=== PATIENT | female | born 1990 | race Caucasian/White ===

== ENCOUNTER 2018-05-05 08:20 | Day surgery (SDC) | payer OTHER ==
[2018-05-03 15:53] LABS: BASOPHILS 0.2 % (0-2); HEMATOCRIT 42.3 % (36.0-48.0); HEMOGLOBIN 14.4 g/dL (12-16); IMMATURE GRANULOCYTES 0.1 % (0-5); LYMPHOCYTES 27.3 % (15-50); MCV 88.1 fL (80.0-100.0); MEAN PLATELET VOLUME 10.5 fL (7.4-10.4); MONOCYTES 5.8 % (2-11); NEUTROPHILS 64.6 % (40-80); PLATELET COUNT 270 10x3/uL (130-400); RDW 13.4 % (11.5-14.5); WBC 9.4 10x3/uL (4.8-10.8)
[~2018-05-05] VITALS: Ht 149.9 cm; Wt 66.2 kg
[~2018-05-05 08:20] MED LIST: CELEXA10 MG PO; OMEPRAZOLE20 M1 PO; OXYBUTYNIN CHLOR5 MG PO
[2018-05-05 09:42] VITALS: BP 102/68; Ht 149.9 cm; Wt 66.2 kg
[2018-05-05 10:08] LABS: HCG URINE NEGATIVE (NEGATIVE)
--- NOTE | 2018-05-05 14:22 | NUR ---
REC'D PT FROM [facility]. FAMILY AT BEDSIDE. FLUIDS BROUGHT TO PATIENT.
--- NOTE | 2018-05-05 14:50 | NUR ---
OFFERED PT A FL TRAY HOWEVER REFUSED. MOTHER BROUGHT PATIENT SOME FOOD. TOLERATED WITHOUT DIFFICULTY. NO URGE TO VOID.
--- NOTE | 2018-05-05 15:05 | NUR ---
ASSISTED TO BATHROOM AND VOIDED WITHOUT DIFFICULTY.
--- NOTE | 2018-05-05 15:25 | NUR ---
IV DC'D WITH CATHETER INTACT. WRITTEN AND VERBAL DC INST. GIVEN TO PT ALONG WITH RX. VERBALIZED UNDERSTANDING.
--- NOTE | 2018-05-05 15:40 | NUR ---
DC'D HOME WITH FAMILY VIA PRIVATE VEHICLE. TAKEN TO VEHICLE VIA WC. STABLE AT TIME OF DC.
--- NOTE | 2018-05-08 09:28 | OP ---
PATIENT NAME: BABS POP MEDICAL RECORD: [id number] :88 LOCATION:D[facility] ADMISSION DATE: SURGEON: TRAMAINE PEREZ MD DATE OF OPERATION: 05/05/2018 PREOPERATIVE DIAGNOSES: 1. Secondary amenorrhea. 2. Polycystic ovarian syndrome. POSTOPERATIVE DIAGNOSES: 1. Secondary amenorrhea. 2. Polycystic ovarian syndrome. PROCEDURES: Hysteroscopy, dilation and curettage. SURGEON: Tramaine Perez ANESTHESIA: General by LMA. INTRAVENOUS FLUIDS: Per anesthesia record. HYSTEROSCOPIC FLUID LOSS: Approximately 50 cc of 0.9 normal saline. SPECIMENS: Endometrial curettings. FINDINGS: 1. Grossly external genitalia and cervix. 2. Proliferative endometrial phase. COMPLICATIONS: None apparent. SPECIMENS: Endometrial curettings. ESTIMATED BLOOD LOSS: Minimal. DESCRIPTION OF PROCEDURE: The patient was taken to the operating room, where general anesthesia was achieved without any difficulty. The patient was then prepped and draped in normal sterile fashion in the dorsal lithotomy position in the [facility]. SCDs were on and functioning normally. The bladder was drained of approximately 50 cc of straw-colored urine, at which point Graves speculum was placed into the vagina. The cervix was then grasped on its anterior lip with a single-tooth tenaculum. A #2 dilator was then used to gently cannulate the endocervix. Further dilation was then performed to approximately 6 mm. At this point, the hysteroscope was introduced into the uterus. Survey of the endometrial canal was performed in its entirety to the fundus including bilateral tubal ostia were identified. Following hysteroscopy, curettage was performed using a #1 curette. The hysteroscope was then reintroduced into the uterus without any difficulty and survey of the endometrium revealed majority of proliferative tissue appeared to be gone. The hysteroscope was then removed followed by the tenaculum. The patient tolerated the procedure well and was transferred to the postanesthesia recovery stable without incident. TRANSINT:[id number] Voice Confirmation ID: [id number] DOCUMENT ID: [id number] OPERATIVE REPORT [id number] BABS POP TRAMAINE PEREZ MD at 0928 CC: [id number] DICTATION DATE: 05/07/18 0707 CLOTH DYER: 05/07/18 1239 DEP SDC 05/05/18 [facility] [address] [place] [address]
== END 2018-05-05 15:40 | disposition home or self-care (01) ==
LOC: D.OPS 08:20 → D.PAN 09:00 → D.OPS 09:20
PROVIDERS: ATTEND Obstetrics & Gynecology
DX: N91.1 Secondary amenorrhea (principal); E28.2 Polycystic ovarian syndrome; Z01.812 Encounter for preprocedural laboratory examination